=== PATIENT | female | born 1975 | race Caucasian/White ===

== ENCOUNTER 2024-03-04 09:28 | Inpatient (IN) | payer MEDICAID ==
[~2024-03-04] VITALS: Ht 170.2 cm; Wt 28.6 kg
[2024-03-04] MEDS ORDERED: GABA-1181 PO (10:06)
[2024-03-04] MEDS ORDERED: OMEP20 PO (10:06)
[2024-03-04] MEDS ORDERED: CELE200 PO (10:06)
[2024-03-04] MEDS ORDERED: OXYC-490 PO (10:06)
[2024-03-04] MEDS ORDERED: TRAZ-257 PO (10:06)
[2024-03-04 10:23] LABS: BASOPHILS % (AUTO) 0.4 % (0.0-2.0); EOSINOPHILS % (AUTO) 0.1 % (1.0-6.0); HEMATOCRIT 37.1 % (36-46); HEMOGLOBIN 11.7 g/dL (12.0-16.0); LYMPHOCYTES # (AUTO) 0.7 K/uL (1.0-4.8); LYMPHOCYTES % (AUTO) 10.2 % (22.0-44.0); MEAN CORPUSCULAR HEMOGLOBIN 25.6 pg (26.0-34.0); MEAN CORPUSCULAR HGB CONC 31.4 G/dL (31.0-37.0); MEAN CORPUSCULAR VOLUME 82 fL (80-100); MONOCYTES # (AUTO) 0.3 K/uL (0.1-1.0); MONOCYTES % (AUTO) 4.8 % (2.0-9.0); NEUTROPHILS # (AUTO) 5.6 K/uL (1.8-7.7); NEUTROPHILS % (AUTO) 84.5 % (40.0-70.0); PLATELET COUNT (AUTO) 393 K/uL (150-450); RED BLOOD CELL COUNT(AUTO) 4.55 MIL/uL (4.00-5.20); RED CELL DISTRIBUTION WIDTH 22.8 % (11.5-14.5); WHITE BLOOD COUNT (AUTO) 6.6 K/uL (4.5-11.0)
[2024-03-04 10:37] LABS: ANION GAP 9 mmol/L (8-16); CALCIUM, TOTAL 9.5 mg/dL (8.8-10.5); CARBON DIOXIDE 30 mmol/L (22-29); CHLORIDE 104 mmol/L (98-107); CREATININE 0.68 mg/dL (0.60-1.30); GLOMERULAR FILTR. RATE CALC > 60 mL/min (>60); GLUCOSE,RANDOM 107 mg/dL (70-110); POTASSIUM 3.6 mmol/L (3.5-5.1); SODIUM SERUM 143 mmol/L (136-145); UREA NITROGEN, BLOOD 9 mg/dL (7-18)
[2024-03-04 10:42] LABS: ALANINE AMINOTRANSFERASE 32 U/L (12-78); ALBUMIN 3.7 g/dL (3.4-5.0); ALKALINE PHOSPHATASE 90 U/L (46-116); ASPARTATE AMINOTRANSFERASE 24 U/L (15-37); BILIRUBIN,TOTAL 0.4 mg/dL (0.1-1.0); TOTAL PROTEIN, SERUM 7.4 g/dL (6.4-8.2)
[2024-03-04 10:57] LABS: ALCOHOL, BLOOD (SERUM) < 3 mg/dL (0-10)
[2024-03-04] MEDS: HALOPERIDOL LACTATE 5 MG/ML VIAL IM ONE (11:08)
[2024-03-04] MEDS: DiphenhydrAMINE HCL 50 MG/ML VIAL IM ONE (11:09)
[2024-03-04] MEDS: LORazepam 2 MG/ML VIAL IM ONE (11:09)
[2024-03-04 11:30] LABS: RBC MORPHOLOGY COMMENT ABNORMAL RBC MORPH
[2024-03-04 11:32] LABS: COVID AG,FIA SOURCE NASAL SWAB
[2024-03-04 11:49] LABS: SARS-COV2 (COVID) ANTIGEN,FIA Negative (Negative)
[2024-03-04] MEDS: HALOPERIDOL 5 MG TABLET PO PRN (19:14)
[2024-03-04] MEDS: LORazepam 2 MG TABLET PO PRN (19:14)
[2024-03-04] MEDS: ZOLPIDEM TARTRATE 10 MG TABLET PO PRN (23:30)
[2024-03-05 04:17] VITALS: BP 134/81; PULSE 99; RESP 18; TEMP 97.3; O2SAT 100
[2024-03-05] MEDS ORDERED: ACETAMINOPHEN 325 MG TABLET PO PRN (08:15)
[2024-03-05] MEDS: GABAPENTIN 300 MG CAPSULE PO SCH (08:20)
[2024-03-05] MEDS: OMEPRAZOLE 20 MG CAPSULE PO SCH (08:20)
[2024-03-05 08:32] LABS: HEMOGLOBIN A1C 4.9 % (3.8-5.6)
[2024-03-05] MEDS: CELECOXIB 200 MG CAPSULE PO SCH (08:43)
[2024-03-05 08:46] LABS: CHOL/HDL RATIO 1.9 (3.9-5.7); FREE T4 (FREE THYROXINE) 1.09 ng/dL (0.76-1.46); T4 (THYROXINE) 8.7 mcg/dL (4.7-13.3); THYROID STIMULATING HORMONE 0.93 uIU/mL (0.36-3.74)
[2024-03-05 08:50] VITALS: BP 113/87; PULSE 100; RESP 18; TEMP 97.9; O2SAT 97
[2024-03-05] MEDS ORDERED: MAGNESIUM HYDROXIDE SUSPENSION 30 ML UDCUP PO PRN (10:00)
[2024-03-05] MEDS ORDERED: PETROLATUM,WHITE 28 GM JELLY TP PRN (10:00)
[2024-03-05] MEDS ORDERED: NICOTINE 14 MG/24 HOUR PATCH TD PRN (10:00)
[2024-03-05] MEDS ORDERED: CloNIDine HCL 0.1 MG TABLET PO PRN (10:00)
[2024-03-05] MEDS ORDERED: IBUPROFEN 400 MG TABLET PO PRN (10:00)
[2024-03-05] MEDS ORDERED: LOPERAMIDE HCL 2 MG CAPSULE PO PRN (10:00)
[2024-03-05] MEDS ORDERED: MAG HYDROX/ALUMINUM HYD/SIMETH ES 30 ML SUSPENSION UDCUP PO PRN (10:00)
[2024-03-05] MEDS ORDERED: DOCUSATE SODIUM 100 MG CAPSULE PO PRN (10:00)
[2024-03-05] MEDS ORDERED: ALBUTEROL SULFATE HFA 90 MCG/PUFF 8 GM INHALER IH PRN (10:00)
[2024-03-05] MEDS ORDERED: ONDANSETRON HCL 4 MG TABLET PO PRN (10:00)
[2024-03-05] MEDS ORDERED: GuaiFENesin/D-METHORPHAN [SUGAR-FREE] 200-20MG/10 ML SYRUP UDCUP PO PRN (10:00)
[2024-03-05 17:09] VITALS: BP 118/87; PULSE 90; RESP 20; TEMP 97.2; O2SAT 98
[2024-03-05] MEDS: ACETAMINOPHEN 325 MG TABLET PO PRN (17:09)
[2024-03-05 18:09] VITALS: BP 117/86; PULSE 90; RESP 20; TEMP 97.1; O2SAT 98
[2024-03-05 20:21] VITALS: BP 119/87; PULSE 90; RESP 20; TEMP 98.3; O2SAT 98
[2024-03-06] MEDS: DULoxetine HCL 60 MG CAPSULE PO SCH (08:04)
[2024-03-06] MEDS: CELECOXIB 200 MG CAPSULE PO SCH (08:05)
[2024-03-06] MEDS: OMEPRAZOLE 20 MG CAPSULE PO SCH (08:05)
[2024-03-06] MEDS ORDERED: DULO-113 PO (09:03)
[2024-03-06] MEDS ORDERED: GABA-1181 PO (09:03)
[2024-03-06 09:26] VITALS: BP 115/90; PULSE 100; RESP 17; TEMP 97.3; O2SAT 100
[2024-03-06 11:56] LABS: HEMOGLOBIN A1C 4.9 % (3.8-5.6)
[2024-03-06 12:07] LABS: CHOL/HDL RATIO 1.8 (3.9-5.7); THYROID STIMULATING HORMONE 0.61 uIU/mL (0.36-3.74)
== END 2024-03-06 12:20 | disposition home or self-care (01) | DRG 754 ==
LOC: EMS 09:28 → B3A 20:29
PROVIDERS: ADMIT Psychiatry & Neurology Child & Adolescent Psychiatry; ATTEND Psychiatry & Neurology Child & Adolescent Psychiatry
DX: F32.9 Major depressive disorder, single episode, unspecified (principal); F25.9 Schizoaffective disorder, unspecified; G40.909 Epilepsy, unspecified, not intractable, without status epilepticus; G89.29 Other chronic pain; F29 Unspecified psychosis not due to a substance or known physiological condition; Z20.822 Contact with and (suspected) exposure to COVID-19; K21.9 Gastro-esophageal reflux disease without esophagitis; G47.00 Insomnia, unspecified; Z79.899 Other long term (current) drug therapy
CPT/HCPCS: 80053; 80061; 83036; 84436; 84439; 84443; 84702; 85025; 96372; 99285; G0480; J1200; J1630; J2060